=== PATIENT | female | born 1975 ===

== ENCOUNTER → 2017-11-17 | Outpatient (CLI) | payer OTHER ==
--- NOTE | 2017-11-17 17:16 | WOMENS IMAGING REPORT ---
EXAM DESCRIPTION: BILAT SCREENING MAMMO W/CAD COMPLETED DATE/TIME: 11/17/2017 2:59 pm REASON FOR STUDY: SCREENING MAMMO Z12.31 ENCNTR SCREEN MAMMOGRAM FOR MALIGNANT NEOPLASM OF BIANKA COMPARISON: Baseline study TECHNIQUE: Standard craniocaudal and mediolateral oblique views of each breast recorded using [employer] Power[employer] l acquisition. LIMITATIONS: None. FINDINGS: RIGHT BREAST MASSES: No suspicious masses. CALCIFICATIONS: No suspicious calcifications. ARCHITECTURAL DISTORTION: None. DEVELOPING DENSITY: On the right MLO view, superior to the nipple about 7 cm from the nipple, a devel oping density versus superimposed shadows is present for which right breast cone compression in the M LO view, right breast exaggerated craniocaudad view, right whole breast 90 mediolateral views recomm ended for follow-up. If there is persistent finding, then ultrasound would be required for followup. ASYMMETRY: None noted. OTHER: No other significant findings. LEFT BREAST MASSES: No suspicious masses. CALCIFICATIONS: No suspicious calcifications. Benign skin calcifications are present ARCHITECTURAL DISTORTION: None. DEVELOPING DENSITY: None. ASYMMETRY: None noted. OTHER: No other significant findings. Read with the assistance of CAD. .[facility] - R2 Cenova Version 1.3 .[facility] Imaging - R2 Cenova Version 1.3 .[facility] Imaging - R2 Cenova Version 2.4 .[facility] [place] - R2 Cenova Version 2.4 .[facility] - R2 Commission Associate Version 9.2 IMPRESSION: Developing density versus superimposed shadows right breast MLO view only for which blas tional diagnostic mammograms and possible ultrasound recommended. No mammographic evidence for malignancy left breast BREAST DENSITY: b. There are scattered areas of fibroglandular density. BIRAD: 0 Incomplete: Needs Additional Imaging Evaluation and/or prior Mammograms for Comparison. RECOMMENDATION: RECOMMENDED FOLLOW-UP: Additional right breast diagnostic mammograms and possible ul trasound The patient will be contacted for additional imaging. COMMENT: The patient has been notified of the results by letter per MQSA requirements. Additional no tification policies are in place for contacting patient with suspicious or incomplete findings. Quality ID #[id number]: The [employer] recommends an annual screening mammogram for women aged 40 years or over. This facility utilizes a reminder system to ensure that all patients receive reminder letters, and/or direct phone calls for appointments. This includes reminders for routine scr eening mammograms, diagnostic mammograms, or other Breast Imaging Interventions when appropriate. Th is patient will be placed in the appropriate reminder system. The [employer] (ACR) has developed recommendations for screening MRI of the breast s in certain patient populations, to be used in conjunction with mammography. Breast MRI surveillanc e may be appropriate for women with more than 20% lifetime risk of developing breast cancer as deter mined by genetic testing, significant family history of the disease, or history of mantle radiation f or Hodgkins Disease. ACR Practice Guidelines 2008. TECHNICAL DOCUMENTATION: FINDING NUMBER: (1) ASSESSMENT: (1) JOB ID: [id number] [employer]- All Rights Reserved Reading location - IP/workstation name: [email or web address]
== END ==
LOC: WI 11:30
PROVIDERS: ATTEND Family Medicine
DX: Z12.31 Encounter for screening mammogram for malignant neoplasm of breast (principal)
CPT/HCPCS: 77067

== ENCOUNTER → 2017-11-29 | Outpatient (CLI) | payer OTHER ==
--- NOTE | 2017-11-29 15:23 | WOMENS IMAGING REPORT ---
EXAM DESCRIPTION: RIGHT DIAGNOSTIC MAMMO W/CAD; U/S BREAST UNILAT LIMITED COMPLETED DATE/TIME: 11/29/2017 1:06 pm; 11/29/2017 1:43 pm REASON FOR STUDY: INCONCLUSIVE MAMMO; RT BREAST R92.2 R92.2 INCONCLUSIVE MAMMOGRAM COMPARISON: 11/17/2017. TECHNIQUE: True lateral, exaggerated CC lateral, and spot compression MLO and exaggerated CC lateral images. LIMITATIONS: None. FINDINGS: BREAST: right MASSES: No suspicious masses. CALCIFICATIONS: No new or suspicious calcifications. ARCHITECTURAL DISTORTION: None. DEVELOPING DENSITY: Small focal density seen on MLO view only and has the appearance of fibroglandula r tissue. No discrete mass or architectural distortion. ASYMMETRY: None noted. OTHER: No other significant findings. BREAST ULTRASOUND: TECHNIQUE: Static and dynamic grayscale images acquired of the right breast in the specific areas of clinical/mammographic concern. Selected color Doppler images recorded. ELASTOGRAPHY PERFORMED: No. LIMITATIONS: None. FINDINGS: MASS: No mass identified. Normal glandular tissue. ELASTOGRAPHY CHARACTERISTICS: Not applicable. OTHER: No other significant finding. IMPRESSION: No focal abnormality visualized on additional images or ultrasound. [facility], would recommend a short-term interval followup to evaluate for stability. BREAST DENSITY: b. There are scattered areas of fibroglandular density. BIRAD: 3 Probably benign finding. Initial short-interval follow-up suggested. RECOMMENDATION: RECOMMENDED FOLLOW UP: Birads 3: The patient will return in 6 months for follow-up i christina. SPECIFIC INTERVENTION/IMAGING/CONSULTATION RECOMMENDED:The patient will return for 6 month follow-up diagnostic mammography(tomosynthesis) and targeted breast ultrasound. COMMUNICATION:The imaging findings were not discussed with the patient. Her referring provider has be en notified of the findings. COMMENT: The patient has been notified of the results by letter per MQSA requirements. Additional no tification policies are in place for contacting patient with suspicious or incomplete findings. Quality ID #[id number]: The [employer] recommends an annual screening mammogram for women aged 40 years or over. This facility utilizes a reminder system to ensure that all patients receive reminder letters, and/or direct phone calls for appointments. This includes reminders for routine scr eening mammograms, diagnostic mammograms, or other Breast Imaging Interventions when appropriate. Th is patient will be placed in the appropriate reminder system. The [employer] (ACR) has developed recommendations for screening MRI of the breast s in certain patient populations, to be used in conjunction with mammography. Breast MRI surveillanc e may be appropriate for women with more than 20% lifetime risk of developing breast cancer as deter mined by genetic testing, significant family history of the disease, or history of mantle radiation f or Hodgkins Disease. ACR Practice Guidelines 2008. TECHNICAL DOCUMENTATION: FINDING NUMBER: (1) ASSESSMENT: (1) JOB ID: [id number] [employer]- All Rights Reserved Reading location - IP/workstation name: [email or web address] BEDS AT [facility]
== END ==
LOC: WI 12:42
PROVIDERS: ATTEND Family Medicine
DX: R92.2 Inconclusive mammogram (principal)
CPT/HCPCS: 76642

== ENCOUNTER 2019-11-04 11:23 | Inpatient (IN) | payer OTHER ==
--- NOTE | 2019-11-04 11:48 | ER Document Report ---
ED Medical Screen (RME) - General Chief Complaint: Shortness Of Breath Stated Complaint: SHORTNESS OF BREATH Time Seen by Provider: 11/04/19 11:43 Primary Care Provider: NESTOR MALLOY MD [Primary Care Provider] - Follow up as needed Mode of Arrival: Ambulatory Information source: Patient Notes: 43 old female presents to ED for complaint of shortness of breath fatigue takes a lot longer to do everything. She states she has of had a fruity taste in her mouth and at increased acid reflux smokes about 1/2 pack a day rarely drinks no drugs. Patient is alert oriented respirations regular nonlabored. She states she is mainly just severely fatigued of breath. She states she cannot remember the last time she had a bowel movement and she gags all the time. O2 sat in the pit area is 100% pulse is 110 respirations are 20 I have greeted and performed a rapid initial assessment of this patient. A comprehensive ED assessment and evaluation of the patient, analysis of test results and completion of medical decision making process will be conducted by an additional ED providers. TRAVEL OUTSIDE OF THE [place] IN LAST 30 DAYS: No - Related Data Allergies/Adverse Reactions: No Known Allergies Allergy (Verified 11/04/19 11:39) Past Medical History - Past Medical History Cardiac Medical History: Denies: Hx Coronary Artery Disease, Hx Hypertension Pulmonary Medical History: Reports: Hx Pneumonia Denies: Hx Asthma, Hx Bronchitis, Hx COPD Neurological Medical History: Denies: Hx Cerebrovascular Accident, Hx Seizures Musculoskeltal Medical History: Denies Hx Arthritis Past Surgical History: Reports: Hx Tubal Ligation. Denies: Hx Pacemaker - Immunizations Hx Diphtheria, Pertussis, Tetanus Vaccination: Yes Physical Exam - Vital signs Vitals: Pulse Resp BP Pulse Ox 120 H 22 H 114/63 98 11/04/19 11:35 11/04/19 11:35 11/04/19 11:35 11/04/19 11:35 Course - Vital Signs Vital signs: Temp Pulse Resp BP Pulse Ox 120 H 22 H 114/63 98 11/04/19 11:35 11/04/19 11:35 11/04/19 11:35 11/04/19 11:35 Doctor's Discharge - Discharge Referrals: NESTOR MALLOY MD [Primary Care Provider] - Follow up as needed
[2019-11-04 12:37] LABS: VENOUS BLOOD BASE EXCESS -18.1 mmol/L; VENOUS BLOOD HCO3 8.7 mmol/L (20-32); VENOUS BLOOD PCO2 25.1 mmHg (35-63)
[2019-11-04 12:38] LABS: ABSOLUTE LYMPHOCYTES (AUTO) 1.4 10^3/uL (0.5-4.7); ABSOLUTE MONOCYTES (AUTO) 0.6 10^3/uL (0.1-1.4); ABSOLUTE NEUT (AUTO) 8.6 10^3/uL (1.7-8.2); BASOPHILS % (AUTO) 0.3 % (0-2); EOSINOPHILS % (AUTO) 0.3 % (0-6); HEMATOCRIT 49.4 % (36.0-47.0); HEMOGLOBIN 17.2 g/dL (12.0-15.5); LYMPHOCYTES % (AUTO) 12.9 % (13-45); MEAN CORPUSCULAR HEMOGLOBIN 30.2 pg (27.0-33.4); MEAN CORPUSCULAR HGB CONC 34.8 g/dL (32.0-36.0); MEAN CORPUSCULAR VOLUME 87 fl (80-97); MONOCYTES % (AUTO) 5.9 % (3-13); PLATELET COUNT 231 10^3/uL (150-450); RED BLOOD COUNT 5.69 10^6/uL (3.72-5.28); RED CELL DISTRIBUTION WIDTH 16.3 % (11.5-14.0); SEGMENTED NEUTROPHILS % (AUTO) 80.6 % (42-78); TOTAL CELLS COUNTED % (AUTO) 100 %; WHITE BLOOD COUNT 10.7 10^3/uL (4.0-10.5)
[2019-11-04 12:41] LABS: VENOUS BLOOD PH 7.16 (7.30-7.42)
[2019-11-04 12:55] LABS: AMORPHOUS SEDIMENT,URINE TRACE /HPF; APPEARANCE,URINE CLOUDY; BILIRUBIN,URINE NEGATIVE (NEGATIVE); COLOR,URINE YELLOW; GLUCOSE, URINE >=500 mg/dL (NEGATIVE); KETONES,URINE 80 mg/dL (NEGATIVE); PROTEIN,URINE 100 mg/dL (NEGATIVE); URINE SPECIFIC GRAVITY 1.022; UROBILINOGEN,URINE NEGATIVE mg/dL (<2.0)
[2019-11-04 12:57] LABS: ALBUMIN 4.3 g/dL (3.5-5.0); ALKALINE PHOSPHATASE 184 U/L (38-126); ASPARTATE AMINO TRANSFERASE 37 U/L (14-36); BILIRUBIN,DIRECT 0.3 mg/dL (0.0-0.4); BILIRUBIN,TOTAL 0.8 mg/dL (0.2-1.3); BLOOD UREA NITROGEN 7 mg/dL (7-20); CALCIUM 8.9 mg/dL (8.4-10.2); CHLORIDE 100 mmol/L (98-107); POTASSIUM 3.1 mmol/L (3.6-5.0); TOTAL PROTEIN 7.4 g/dL (6.3-8.2)
[2019-11-04 13:10] LABS: ANION GAP 24 (5-19)
[2019-11-04 13:12] LABS: CARBON DIOXIDE 8 mmol/L (22-30); GLUCOSE 425 mg/dL (75-110)
[2019-11-04] MEDS ORDERED: NORMAL SALINE 1000 ML 1,000 ML IV ONE (14:08)
[2019-11-04] MEDS ORDERED: INSULIN REG, HUMAN 100 UNIT/ML 3 ML VIAL (PYX) IV ONE (14:08)
--- NOTE | 2019-11-04 14:17 | ER Document Report ---
ED General - General Chief Complaint: General Weakness Stated Complaint: SHORTNESS OF BREATH Time Seen by Provider: 11/04/19 11:43 Primary Care Provider: NESTOR MALLOY MD [Primary Care Provider] - Follow up as needed Mode of Arrival: Ambulatory Information source: Patient Notes: 43-year-old woman presents to the emergency department with a fatigue and feeling poorly for 1 week. Her symptoms progressed and she is now very weak and notes increased thirst. She denies polyuria or polyphasia. Blood sugar was noted to be elevated when she checked 9 at triage. Patient denies a history of diabetes mellitus in the past. She denies fever, cough, chest pain or urinary symptoms. TRAVEL OUTSIDE OF THE [place] IN LAST 30 DAYS: No - Related Data Allergies/Adverse Reactions: No Known Allergies Allergy (Verified 11/04/19 11:39) Past Medical History - General Information source: Patient - Social History Smoking Status: Current Every Day Smoker Chew tobacco use (# tins/day): No Frequency of alcohol use: Rare Drug Abuse: None Family History: Reviewed & Not Pertinent Patient has suicidal ideation: No Patient has homicidal ideation: No - Past Medical History Cardiac Medical History: Denies: Hx Coronary Artery Disease, Hx Hypertension Pulmonary Medical History: Reports: Hx Pneumonia Denies: Hx Asthma, Hx Bronchitis, Hx COPD Neurological Medical History: Denies: Hx Cerebrovascular Accident, Hx Seizures Musculoskeletal Medical History: Denies Hx Arthritis Past Surgical History: Reports: Hx Tubal Ligation. Denies: Hx Pacemaker - Immunizations Hx Diphtheria, Pertussis, Tetanus Vaccination: Yes Review of Systems - Review of Systems Notes: Constitutional: + Generalized weakness, fatigue HENT: Negative for sore throat. Eyes: Negative for visual changes. Cardiovascular: Negative for chest pain. Respiratory: Negative for shortness of breath. Gastrointestinal: Negative for abdominal pain, vomiting or diarrhea. Genitourinary: Negative for dysuria. Musculoskeletal: Negative for back pain. Skin: Negative for rash. Neurological: Negative for headaches, weakness or numbness. 10 point ROS negative except as marked above and in HPI. Physical Exam - Vital signs Vitals: Pulse Resp BP Pulse Ox 120 H 22 H 114/63 98 11/04/19 11:35 11/04/19 11:35 11/04/19 11:35 11/04/19 11:35 - Notes Notes: PHYSICAL EXAMINATION: Physical Exam: General: Ill appearing 43-year-old female tachycardic and generalized weakness HEENT: NC/AT, eyes sunken, pupils equal round and reactive to light, mucous membranes dry, Neck: supple, no adenopathy, no masses. Lungs: clear, no wheezing, no rales no rhonchi CVS: Tachycardia rate and rhythm no murmur gallop or rub Abdomen: Soft active nontender, no masses, no hepatosplenomegaly Ext: No edema clubbing or cyanosis. Neuro: Alert and responsive, moving all 4 extremities on command, cranial nerves intact. Skin: Intact no open lesions, no rash PSYCH: Normal mood, normal affect. Course - Re-evaluation Re-evalutation: 11/04/19 15:40 Patient presents with DKA and new onset diabetes mellitus, IV fluids ordered as well as IV insulin. Discussed the patient with the hospitalist, he will admit the patient to the MICU for further evaluation and treatment. - Vital Signs Vital signs: Temp Pulse Resp BP Pulse Ox 97.3 F 110 H 20 114/63 99 11/04/19 11:56 11/04/19 11:56 11/04/19 11:56 11/04/19 11:35 11/04/19 12:34 - Laboratory Result Diagrams: 11/04/19 12:17 11/04/19 12:17 Laboratory results interpreted by me: 11/04/19 11/04/19 11/04/19 11:50 12:17 12:17 WBC 10.7 H RBC 5.69 H Hgb 17.2 H Hct 49.4 H RDW 16.3 H Lymph % (Auto) 12.9 L Absolute Neuts (auto) 8.6 H Seg Neutrophils % 80.6 H VBG pH VBG pCO2 VBG HCO3 Sodium 131.8 L Potassium 3.1 L Carbon Dioxide 8 L* Anion Gap 24 H Est GFR (MDRD) Non-Af 56 L Glucose 425 H* POC Glucose 388 H AST 37 H ALT 45 H Alkaline Phosphatase 184 H Urine Protein Urine Glucose (UA) Urine Ketones Urine Blood Leukocyte Esterase Rfl 11/04/19 11/04/19 12:17 12:17 WBC RBC Hgb Hct RDW Lymph % (Auto) Absolute Neuts (auto) Seg Neutrophils % VBG pH 7.16 L* VBG pCO2 25.1 L VBG HCO3 8.7 L Sodium Potassium Carbon Dioxide Anion Gap Est GFR (MDRD) Non-Af Glucose POC Glucose AST ALT Alkaline Phosphatase Urine Protein 100 H Urine Glucose (UA) >=500 H Urine Ketones 80 H Urine Blood MODERATE H Leukocyte Esterase Rfl TRACE H - EKG Interpretation by Nj Rate: Tachycardia - Sinus tachycardia rate 105, left atrial abnormality, borderline T wave diffusely. No acute ST or T wave ischemic changes. Critical Care Note - Critical Care Note Total time excluding time spent on procedures (mins): 60 - Critical care macro Discharge - Discharge Clinical Impression: New onset type 2 diabetes mellitus DKA (diabetic ketoacidoses) Qualifiers: Diabetes mellitus type: other specified (including KULDIP) Diabetes mellitus complication detail: without coma Qualified Code(s): E13.10 - Other specified diabetes mellitus with ketoacidosis without coma UTI (urinary tract infection) Qualifiers: Urinary tract infection type: acute cystitis Hematuria presence: without hematuria Qualified Code(s): N30.00 - Acute cystitis without hematuria Condition: Fair Disposition: ADMITTED INPATIENT Admitting Provider: Betty (Hospitalist) Unit Admitted: IMCU Referrals: NESTOR MALLOY MD [Primary Care Provider] - Follow up as needed
[2019-11-04] MEDS ORDERED: NORMAL SALINE 1000 ML 1,000 ML IV PRN (14:25)
[2019-11-04] MEDS ORDERED: DEXTROSE 40% GEL 15 GM TUBE PO PRN ×2 (14:26)
[2019-11-04] MEDS ORDERED: DEXTROSE 50%-WATER 25 GM/50 ML DISP.SYRIN IV PRN ×2 (14:26)
[2019-11-04] MEDS ORDERED: GLUCAGON,HUMAN RECOMB 1 MG INJ IM PRN (14:26)
[2019-11-04] MEDS ORDERED: PROMETHAZINE HCL INJ 25 MG/1 ML VIAL IV PRN (14:28)
[2019-11-04] MEDS ORDERED: ACETAMINOPHEN 325 MG TABLET PO PRN (14:28)
[2019-11-04] MEDS ORDERED: ONDANSETRON HCL INJ/PF 4 MG/2 ML SDV IV PRN (14:28)
[2019-11-04] MEDS ORDERED: IPRATROPIUM/ALBUTEROL 0.5-2.5 MG/3 ML AMPUL NEB PRN (14:28)
[2019-11-04] MEDS ORDERED: OXYCODONE-ACETAMINOPHEN 5-325 MG TABLET PO PRN (14:28)
--- NOTE | 2019-11-04 14:30 | EKG REPORT ---
SEVERITY:- BORDERLINE ECG - SINUS TACHYCARDIA PROBABLE LEFT ATRIAL ABNORMALITY BORDERLINE T ABNORMALITIES, DIFFUSE LEADS : Confirmed by: Milind Castaneda MD 04-Nov-2019 14:29:26
--- NOTE | 2019-11-04 14:57 | PDOC H&P ---
History of Present Illness Admission Date/PCP: 11/04/19 14:39 NESTOR MALLOY MD History of Present Illness: JULIANNE DANGELO is a 43 year old female no significant past medical history presenting to ED complaining of several days worsening of fatigue, polydipsia, anorexia. Denies any history of diabetes, polyphagia or polyuria, weight changes, had some blurry vision which has improved, denies any dysuria, fever, chills, shortness of breath, chest pain, headache, abdominal pain, diarrhea, constipation. In ED he was found to be very hyperglycemic with elevated anion gap and UA positive for leukocytosis. Hospital was consulted for admission. Past Medical History Cardiac Medical History: Denies: Coronary Artery Disease, Hypertension Pulmonary Medical History: Reports: Pneumonia Denies: Asthma, Bronchitis, Chronic Obstructive Pulmonary Disease (COPD) Neurological Medical History: Denies: Seizures Musculoskeltal Medical History: Denies: Arthritis Hematology: Denies: Anemia Past Surgical History Past Surgical History: Reports: Tubal Ligation Denies: Pacemaker Social History Smoking Status: Current Every Day Smoker Electronic Cigarette use?: No Family History Family History: Reviewed & Not Pertinent Parental Family History Reviewed: Yes Children Family History Reviewed: Yes Sibling(s) Family History Reviewed.: Yes Medication/Allergy Home Medications: Loratadine [Claritin 10 Mg Tablet] 10 mg PO DAILY #30 tablet 06/30/13 No Home Medications 1 06/30/13 Allergies/Adverse Reactions: No Known Allergies Allergy (Verified 11/04/19 11:39) Review of Systems Review of Systems: as per hpi Physical Exam Vital Signs: Temp Pulse Resp BP Pulse Ox 97.3 F 110 H 20 114/63 99 11/04/19 11:56 11/04/19 11:56 11/04/19 11:56 11/04/19 11:35 11/04/19 12:34 Intake & Output 11/03/19 11/04/19 11/05/19 06:59 06:59 06:59 Weight 86.8 kg General appearance: PRESENT: no acute distress, well-developed, well-nourished Head exam: PRESENT: atraumatic, normocephalic Respiratory exam: PRESENT: clear to auscultation bella. ABSENT: rales, rhonchi, wheezes Cardiovascular exam: PRESENT: RRR. ABSENT: diastolic murmur, rubs, systolic murmur Pulses: PRESENT: normal dorsalis pedis pul Extremities exam: PRESENT: full ROM. ABSENT: calf tenderness, clubbing, pedal edema Neurological exam: PRESENT: alert, awake, oriented to person, oriented to place, oriented to time, oriented to situation, CN II-XII grossly intact. ABSENT: motor sensory deficit Skin exam: PRESENT: dry, intact, warm. ABSENT: cyanosis, rash Results Laboratory Results: 11/04/19 12:17 11/04/19 12:17 11/04/19 11/04/19 11/04/19 12:17 12:17 12:17 WBC 10.7 H RBC 5.69 H Hgb 17.2 H Hct 49.4 H MCV 87 MCH 30.2 MCHC 34.8 RDW 16.3 H Plt Count 231 Seg Neutrophils % 80.6 H VBG pH 7.16 L* VBG pCO2 25.1 L VBG HCO3 8.7 L VBG Base Excess -18.1 Sodium 131.8 L Potassium 3.1 L Chloride 100 Carbon Dioxide 8 L* Anion Gap 24 H BUN 7 Creatinine 1.07 Est GFR ( Amer) > 60 Glucose 425 H* Calcium 8.9 Total Bilirubin 0.8 AST 37 H Alkaline Phosphatase 184 H Total Protein 7.4 Albumin 4.3 Serum HCG, Qual Urine Color Urine Appearance Urine pH Ur Specific [place] Urine Protein Urine Glucose (UA) Urine Ketones Urine Blood Urine RBC (Auto) 11/04/19 11/04/19 12:17 12:17 WBC RBC Hgb Hct MCV MCH MCHC RDW Plt Count Seg Neutrophils % VBG pH VBG pCO2 VBG HCO3 VBG Base Excess Sodium Potassium Chloride Carbon Dioxide Anion Gap BUN Creatinine Est GFR ( Amer) Glucose Calcium Total Bilirubin AST Alkaline Phosphatase Total Protein Albumin Serum HCG, Qual NEGATIVE Urine Color YELLOW Urine Appearance CLOUDY Urine pH 6.0 Ur Specific [place] 1.022 Urine Protein 100 H Urine Glucose (UA) >=500 H Urine Ketones 80 H Urine Blood MODERATE H Urine RBC (Auto) 11 Assessment and Plan - Diagnosis (1) DKA (diabetic ketoacidoses) Qualifiers: Diabetes mellitus type: other specified (including KULDIP) Diabetes mellitus complication detail: without coma Qualified Code(s): E13.10 - Other specified diabetes mellitus with ketoacidosis without coma Is this a current diagnosis for this admission?: Yes Plan: Likely induced by underlying UTI. UA positive for ketones. AG 24. We will start on DKA protocol. (2) New onset type 2 diabetes mellitus Is this a current diagnosis for this admission?: Yes Plan: Endorses family history of diabetes. Pending A1c. Diabetic education. Diabetic diet. Will transition to basal, prandial and correctional insulin once DKA has resolved. (3) UTI (urinary tract infection) Qualifiers: Urinary tract infection type: acute cystitis Is this a current diagnosis for this admission?: Yes Plan: Likely due to gram-negative rods including E. coli. We will start on broad-spectrum antibiotics. Urine culture.
[2019-11-04] MEDS ORDERED: CEFTRIAXONE 1 GM/D5W RTU 1 GM/50 ML RTUPB IV SCH (15:00)
[2019-11-04] MEDS ORDERED: INSULIN REG, HUMAN 100 UNIT/ML 3 ML VIAL (PYX) ONE (15:13)
[2019-11-04] MEDS: NORMAL SALINE 100 ML with INSULIN REGULAR, HUMAN 100 UNIT IV PRN ×2 (15:38)
[2019-11-04 16:37] LABS: ARTERIAL BLOOD BASE EXCESS -19.9 mmol/L; ARTERIAL BLOOD FIO2 ROOM AIR; ARTERIAL BLOOD H2CO3 0.35 mmol/L (1.05-1.35); ARTERIAL BLOOD HCO3 4.6 mmol/L (20-24); ARTERIAL BLOOD O2 SATURATION 98.3 % (94-98); ARTERIAL BLOOD PH 7.22 (7.35-7.45); ARTERIAL BLOOD PO2 135.3 mmHg (80-100)
[2019-11-04 16:39] LABS: ARTERIAL BLOOD PCO2 11.5 mmHg (35-45)
[2019-11-04 18:47] LABS: BLOOD UREA NITROGEN 6 mg/dL (7-20); CALCIUM 7.9 mg/dL (8.4-10.2); GLUCOSE 284 mg/dL (75-110)
[2019-11-04 18:53] LABS: CHLORIDE 106 mmol/L (98-107)
[2019-11-04 18:54] LABS: ANION GAP 22 (5-19)
[2019-11-04 18:56] LABS: CARBON DIOXIDE 7 mmol/L (22-30); POTASSIUM 2.5 mmol/L (3.6-5.0)
[2019-11-04] MEDS ORDERED: SODIUM BICARBONATE 8.4% INJ 50 MEQ/50 ML DISP.SYRIN IV ONE (18:59)
[2019-11-04] MEDS ORDERED: POTASSI CL 20 MEQ/NS 1L 1,000 ML IV PRN (19:00)
[2019-11-04] MEDS ORDERED: POTASSIUM CHLORIDE 10 MEQ TABLET.ER PO ONE ×2 (19:02→22:00)
[2019-11-04] MEDS ORDERED: INFLUENZA QUAD (6MOS+) 2019-20 VAC 0.5 ML SYR IM ONE (20:27)
[2019-11-04] MEDS: FAMOTIDINE 20 MG TABLET PO SCH (21:54)
[2019-11-04 22:03] LABS: ALBUMIN 3.3 g/dL (3.5-5.0); ALKALINE PHOSPHATASE 143 U/L (38-126); ANION GAP 19 (5-19); ASPARTATE AMINO TRANSFERASE 25 U/L (14-36); BILIRUBIN,DIRECT 0.4 mg/dL (0.0-0.4); BILIRUBIN,TOTAL 0.6 mg/dL (0.2-1.3); BLOOD UREA NITROGEN 7 mg/dL (7-20); CALCIUM 8.1 mg/dL (8.4-10.2); CHLORIDE 107 mmol/L (98-107); GLUCOSE 256 mg/dL (75-110); TOTAL PROTEIN 6.2 g/dL (6.3-8.2)
[2019-11-04 22:11] LABS: POTASSIUM 2.5 mmol/L (3.6-5.0)
[2019-11-04 22:12] LABS: CARBON DIOXIDE 9 mmol/L (22-30)
[2019-11-04] MEDS: POTASSIUM CHLORIDE 20 MEQ/50 ML RTU IV SCH (22:33)
[2019-11-04] MEDS: POTASSI CL 20 MEQ/D5-1/2NS 1L 1000 ML IV PRN (22:34)
[2019-11-05] MEDS: POTASSIUM CHLORIDE 20 MEQ/50 ML RTU IV SCH ×3 (00:38→05:31)
[2019-11-05 02:57] LABS: ANION GAP 14 (5-19); BLOOD UREA NITROGEN 6 mg/dL (7-20); CALCIUM 8.3 mg/dL (8.4-10.2); CHLORIDE 114 mmol/L (98-107); GLUCOSE 189 mg/dL (75-110); POTASSIUM 3.1 mmol/L (3.6-5.0)
[2019-11-05] MEDS ORDERED: POTASSIUM CHLORIDE 10 MEQ TABLET.ER PO ONE ×3 (03:19→16:00)
[2019-11-05] MEDS: POTASSI CL 20 MEQ/D5-1/2NS 1L 1000 ML IV PRN ×3 (03:33→07:15)
[2019-11-05 03:41] LABS: CARBON DIOXIDE 8 mmol/L (22-30)
[2019-11-05 06:06] LABS: HEMATOCRIT 40.7 % (36.0-47.0); MEAN CORPUSCULAR HEMOGLOBIN 30.3 pg (27.0-33.4); MEAN CORPUSCULAR HGB CONC 35.7 g/dL (32.0-36.0); MEAN CORPUSCULAR VOLUME 85 fl (80-97); PLATELET COUNT 171 10^3/uL (150-450); RED BLOOD COUNT 4.79 10^6/uL (3.72-5.28); RED CELL DISTRIBUTION WIDTH 15.8 % (11.5-14.0); WHITE BLOOD COUNT 8.6 10^3/uL (4.0-10.5)
[2019-11-05 06:07] LABS: HEMOGLOBIN 14.5 g/dL (12.0-15.5)
[2019-11-05 06:20] LABS: ALBUMIN 2.8 g/dL (3.5-5.0); ALKALINE PHOSPHATASE 131 U/L (38-126); ASPARTATE AMINO TRANSFERASE 18 U/L (14-36); BILIRUBIN,TOTAL 0.5 mg/dL (0.2-1.3); BLOOD UREA NITROGEN 5 mg/dL (7-20); CHLORIDE 115 mmol/L (98-107); GLUCOSE 241 mg/dL (75-110); TOTAL PROTEIN 5.3 g/dL (6.3-8.2)
[2019-11-05 06:37] LABS: ANION GAP 8 (5-19)
[2019-11-05 06:44] LABS: CARBON DIOXIDE 11 mmol/L (22-30); POTASSIUM 4.3 mmol/L (3.6-5.0)
[2019-11-05] MEDS: NORMAL SALINE 100 ML with INSULIN REGULAR, HUMAN 100 UNIT IV PRN ×2 (08:14)
[2019-11-05] MEDS ORDERED: GLUCAGON,HUMAN RECOMB 1 MG INJ IM PRN ×2 (08:24→08:26)
[2019-11-05] MEDS ORDERED: DEXTROSE 50%-WATER 25 GM/50 ML DISP.SYRIN IV PRN ×4 (08:24→08:26)
[2019-11-05] MEDS ORDERED: DEXTROSE 40% GEL 15 GM TUBE PO PRN ×4 (08:24→08:26)
[2019-11-05] MEDS: DOCUSATE SODIUM 100 MG/10 ML UDC PO SCH (09:51)
[2019-11-05] MEDS ORDERED: CEFTRIAXONE 1 GM/D5W RTU 1 GM/50 ML RTUPB IV SCH (10:00)
[2019-11-05] MEDS ORDERED: INSULIN GLARGINE,HUM.REC.ANLOG 1,000 UNIT/10 ML VIAL SUBCUT SCH (10:00)
[2019-11-05] MEDS: INSULIN GLARGINE,HUM.REC.ANLOG 1,000 UNIT/10 ML VIAL SUBCUT SCH (10:50)
[2019-11-05] MEDS: ENOXAPARIN SODIUM INJ 40 MG/0.4 ML DISP.SYRIN SUBCUT SCH (10:50)
[2019-11-05] MEDS: FAMOTIDINE 20 MG TABLET PO SCH ×2 (10:50→21:34)
[2019-11-05] MEDS: CEFTRIAXONE 1 GM/D5W RTU 1 GM/50 ML RTUPB IV SCH (10:51)
[2019-11-05] MEDS ORDERED: INSULIN LISPRO 100 UNIT/ML 3 ML VIAL SUBCUT SCH (12:00)
[2019-11-05] MEDS: INSULIN LISPRO 100 UNIT/ML 3 ML VIAL SUBCUT SCH ×5 (12:25→21:34)
[2019-11-05 14:20] LABS: ALBUMIN 2.9 g/dL (3.5-5.0); ALKALINE PHOSPHATASE 138 U/L (38-126); ANION GAP 7 (5-19); ASPARTATE AMINO TRANSFERASE 24 U/L (14-36); BILIRUBIN,TOTAL 0.5 mg/dL (0.2-1.3); BLOOD UREA NITROGEN 3 mg/dL (7-20); CALCIUM 8.2 mg/dL (8.4-10.2); CARBON DIOXIDE 13 mmol/L (22-30); CHLORIDE 115 mmol/L (98-107); GLUCOSE 178 mg/dL (75-110); TOTAL PROTEIN 5.4 g/dL (6.3-8.2)
[2019-11-05 14:33] LABS: POTASSIUM 3.3 mmol/L (3.6-5.0)
--- NOTE | 2019-11-05 15:27 | PDOC PROGRESS REPORT ---
Subjective Progress Note for:: 11/05/19 Subjective:: JULIANNE DANGELO is a 43 year old female no significant past medical history presenting to ED complaining of several days worsening of fatigue, polydipsia, anorexia. Denies any history of diabetes, polyphagia or polyuria, weight changes, had some blurry vision which has improved, denies any dysuria, fever, chills, shortness of breath, chest pain, headache, abdominal pain, diarrhea, constipation. In ED he was found to be very hyperglycemic with elevated anion gap and UA positive for leukocytosis. Hospital was consulted for admission. 11/05/2019. No acute events overnight. Denies any fever, chills, nausea, vomiting, diarrhea, constipation or any urinary symptoms. Endorsing low appetite. Reason For Visit: DKA Physical Exam Vital Signs: Temp Pulse Resp BP Pulse Ox 97.8 F 97 14 97/58 L 98 11/05/19 08:08 11/05/19 14:30 11/05/19 14:30 11/05/19 08:08 11/05/19 14:30 Intake & Output 11/04/19 11/05/19 11/06/19 06:59 06:59 06:59 Intake Total 4010 1851 Balance 4010 1851 Weight 69.7 kg General appearance: PRESENT: no acute distress, well-developed, well-nourished Head exam: PRESENT: atraumatic, normocephalic Respiratory exam: PRESENT: clear to auscultation bella. ABSENT: rales, rhonchi, wheezes Cardiovascular exam: PRESENT: RRR. ABSENT: diastolic murmur, rubs, systolic murmur GI/Abdominal exam: PRESENT: normal bowel sounds, soft. ABSENT: distended, guarding, mass, organolmegaly, rebound, tenderness Extremities exam: PRESENT: full ROM. ABSENT: calf tenderness, clubbing, pedal edema Neurological exam: PRESENT: alert, awake, oriented to person, oriented to place, oriented to time, oriented to situation, CN II-XII grossly intact. ABSENT: motor sensory deficit Results Laboratory Results: 11/05/19 05:08 11/05/19 13:30 11/04/19 11/04/19 11/04/19 15:25 18:01 21:25 WBC RBC Hgb Hct MCV MCH MCHC RDW Plt Count Carbonic Acid 0.35 L HCO3/H2CO3 Ratio 13:1 ABG pH 7.22 L ABG pCO2 11.5 L* ABG pO2 135.3 H ABG HCO3 4.6 L ABG O2 Saturation 98.3 H ABG Base Excess -19.9 FiO2 ROOM AIR Sodium 134.9 L 135.1 L Potassium 2.5 L* 2.5 L* Chloride 106 107 Carbon Dioxide 7 L* 9 L* Anion Gap 22 H 19 BUN 6 L 7 Creatinine 0.89 0.83 Est GFR ( Amer) > 60 > 60 Glucose 284 H 256 H Calcium 7.9 L 8.1 L Magnesium Total Bilirubin 0.6 AST 25 Alkaline Phosphatase 143 H Total Protein 6.2 L Albumin 3.3 L 11/05/19 11/05/19 11/05/19 02:22 05:08 05:08 WBC 8.6 RBC 4.79 Hgb 14.5 D Hct 40.7 MCV 85 MCH 30.3 MCHC 35.7 RDW 15.8 H Plt Count 171 Carbonic Acid HCO3/H2CO3 Ratio ABG pH ABG pCO2 ABG pO2 ABG HCO3 ABG O2 Saturation ABG Base Excess FiO2 Sodium 136.1 L 133.5 L Potassium 3.1 L 4.3 D Chloride 114 H 115 H Carbon Dioxide 8 L* 11 L Anion Gap 14 8 BUN 6 L 5 L Creatinine 0.66 0.63 Est GFR ( Amer) > 60 > 60 Glucose 189 H 241 H Calcium 8.3 L 8.0 L Magnesium 2.3 Total Bilirubin 0.5 AST 18 Alkaline Phosphatase 131 H Total Protein 5.3 L Albumin 2.8 L 11/05/19 13:30 WBC RBC Hgb Hct MCV MCH MCHC RDW Plt Count Carbonic Acid HCO3/H2CO3 Ratio ABG pH ABG pCO2 ABG pO2 ABG HCO3 ABG O2 Saturation ABG Base Excess FiO2 Sodium 134.9 L Potassium 3.3 L D Chloride 115 H Carbon Dioxide 13 L Anion Gap 7 BUN 3 L Creatinine 0.68 Est GFR ( Amer) > 60 Glucose 178 H Calcium 8.2 L Magnesium Total Bilirubin 0.5 AST 24 Alkaline Phosphatase 138 H Total Protein 5.4 L Albumin 2.9 L Assessment and Plan - Diagnosis (1) New onset type 2 diabetes mellitus Is this a current diagnosis for this admission?: Yes Plan: Endorses family history of diabetes. Hemoglobin A1c 12.3. Diabetic education. Basal, prandial and correctional insulin. Diabetic diet and Accu-Chek and hypoglycemia protocol. (2) UTI (urinary tract infection) Qualifiers: Urinary tract infection type: acute cystitis Hematuria presence: without hematuria Qualified Code(s): N30.00 - Acute cystitis without hematuria Is this a current diagnosis for this admission?: Yes Plan: Likely due to gram-negative rods including E. coli. We will start on broad-spectrum antibiotics. Urine culture. (3) DKA (diabetic ketoacidoses) Qualifiers: Diabetes mellitus type: other specified (including KULIDP) Diabetes mellitus complication detail: without coma Qualified Code(s): E13.10 - Other specified diabetes mellitus with ketoacidosis without coma Is this a current diagnosis for this admission?: Yes Plan: Resolved. Anion gap closed. Switch to subcutaneous insulin. Likely induced by underlying UTI. UA positive for ketones. AG 24 on admission.
[2019-11-06 05:37] LABS: ANION GAP 11 (5-19); BLOOD UREA NITROGEN 4 mg/dL (7-20); CALCIUM 8.3 mg/dL (8.4-10.2); CARBON DIOXIDE 12 mmol/L (22-30); CHLORIDE 115 mmol/L (98-107); GLUCOSE 142 mg/dL (75-110)
[2019-11-06] MEDS: POTASSIUM CHLORIDE 20 MEQ/50 ML RTU IV SCH ×2 (07:19→09:01)
[2019-11-06] MEDS ORDERED: POTASSIUM CHLORIDE 10 MEQ TABLET.ER PO ONE (08:00)
[2019-11-06] MEDS: CEFTRIAXONE 1 GM/D5W RTU 1 GM/50 ML RTUPB IV SCH (09:02)
[2019-11-06] MEDS: INSULIN LISPRO 100 UNIT/ML 3 ML VIAL SUBCUT SCH ×4 (09:02→14:28)
[2019-11-06] MEDS: ENOXAPARIN SODIUM INJ 40 MG/0.4 ML DISP.SYRIN SUBCUT SCH (09:02)
[2019-11-06] MEDS: FAMOTIDINE 20 MG TABLET PO SCH (09:03)
[2019-11-06] MEDS: DOCUSATE SODIUM 100 MG/10 ML UDC PO SCH (09:03)
[2019-11-06] MEDS: INSULIN GLARGINE,HUM.REC.ANLOG 1,000 UNIT/10 ML VIAL SUBCUT SCH (09:06)
[2019-11-06 13:44] VITALS: BP 126/76
[2019-11-06] MEDS ORDERED: INFLUENZA QUAD (6MOS+) 2019-20 VAC 0.5 ML SYR IM ONE (14:15)
--- NOTE | 2019-11-06 17:36 | PDOC DISCHARGE SUMMARY ---
Impression - Admit/DC Date/PCP Admission Date/Primary Care Provider: 11/04/19 14:39 NESTOR MALLOY MD Discharge Date: 11/06/19 - Discharge Diagnosis (1) New onset type 2 diabetes mellitus Is this a current diagnosis for this admission?: Yes (2) UTI (urinary tract infection) Is this a current diagnosis for this admission?: Yes (3) DKA (diabetic ketoacidoses) Is this a current diagnosis for this admission?: Yes - Additional Information Resuscitation Status: Full Code Discharge Diet: As Tolerated Discharge Activity: Activity As Tolerated, Balance Activity w/Rest Referrals: [facility] [Provider Group] - 11/14/19 3:00 pm Prescriptions: Insulin Lispro [Humalog Insulin 100 Unit/1 ml 3 ml Vial] 0 - 12 unit SUBCUT .SLD SCALE 30 Days #10 ml Insulin Glargine,Hum.rec.anlog [Lantus Insulin 100 Unit/1 ml 10 ml] 15 unit SUBCUT QHS 30 Days #1 unit Home Medications: Insulin Glargine,Hum.rec.anlog [Lantus Insulin 100 Unit/1 ml 10 ml] 15 unit SUBCUT QHS 30 Days #1 unit 11/06/19 Insulin Lispro [Humalog Insulin 100 Unit/1 ml 3 ml Vial] 0 - 12 unit SUBCUT .SLD SCALE 30 Days #10 ml 11/06/19 History of Present Illiness History of Present Illness: JULIANNE DANGELO is a 43 year old female no significant past medical history presenting to ED complaining of several days worsening of fatigue, polydipsia, anorexia. Denies any history of diabetes, polyphagia or polyuria, weight changes, had some blurry vision which has improved, denies any dysuria, fever, chills, shortness of breath, chest pain, headache, abdominal pain, diarrhea, constipation. In ED he was found to be very hyperglycemic with elevated anion gap and UA positive for leukocytosis. Hospital was consulted for admission. Hospital Course Hospital Course: (1) New onset type 2 diabetes mellitus Endorses family history of diabetes. Hemoglobin A1c 12.3. Diabetic education. Basal, prandial and correctional insulin. Diabetic diet and Accu-Chek and hypoglycemia protocol. Was discharged on long-acting insulin and sliding scale insulin. Diabetic education provided. Was advised to follow-up with PCP for adjustment of her insulin dosage. Also encouraged to follow-up with lockstitch hemmer determine if patient had type I or type 2 diabetes. (2) UTI (urinary tract infection) Likely due to gram-negative rods including E. coli. Blood culture negative. Received 3 days of broad-spectrum IV antibiotics. Unfortunately no urine culture was obtained admission. (3) DKA (diabetic ketoacidoses) Resolved. Anion gap closed. Switched to subcutaneous insulin. Likely induced by underlying UTI. UA positive for ketones. AG 24 on admission. Physical Exam Vital Signs: Temp Pulse Resp BP Pulse Ox 97.9 F 90 16 126/76 H 100 11/06/19 13:41 11/06/19 13:41 11/06/19 13:41 11/06/19 13:41 11/06/19 13:41 Intake & Output 11/05/19 11/06/19 11/07/19 06:59 06:59 06:59 Intake Total 4010 2971 283 Balance 4010 2971 283 Weight 69.7 kg 73.8 kg General appearance: PRESENT: no acute distress, well-developed, well-nourished Head exam: PRESENT: atraumatic, normocephalic Respiratory exam: PRESENT: clear to auscultation bella. ABSENT: rales, rhonchi, wheezes GI/Abdominal exam: PRESENT: normal bowel sounds, soft. ABSENT: distended, g uarding, mass, organolmegaly, rebound, tenderness Neurological exam: PRESENT: alert, awake, oriented to person, oriented to place, oriented to time, oriented to situation, CN II-XII grossly intact. ABSENT: motor sensory deficit Skin exam: PRESENT: dry, intact, warm. ABSENT: cyanosis, rash Results Laboratory Results: WBC 8.6 10^3/uL (4.0-10.5) 11/05/19 05:08 RBC 4.79 10^6/uL (3.72-5.28) 11/05/19 05:08 Hgb 14.5 g/dL (12.0-15.5) D 11/05/19 05:08 Hct 40.7 % (36.0-47.0) 11/05/19 05:08 MCV 85 fl (80-97) 11/05/19 05:08 MCH 30.3 pg (27.0-33.4) 11/05/19 05:08 MCHC 35.7 g/dL (32.0-36.0) 11/05/19 05:08 RDW 15.8 % (11.5-14.0) H 11/05/19 05:08 Plt Count 171 10^3/uL (150-450) 11/05/19 05:08 Lymph % (Auto) 12.9 % (13-45) L 11/04/19 12:17 [place] % (Auto) 5.9 % (3-13) 11/04/19 12:17 Eos % (Auto) 0.3 % (0-6) 11/04/19 12:17 Baso % (Auto) 0.3 % (0-2) 11/04/19 12:17 Absolute Neuts (auto) 8.6 10^3/uL (1.7-8.2) H 11/04/19 12:17 Absolute Lymphs (auto) 1.4 10^3/uL (0.5-4.7) 11/04/19 12:17 Absolute Monos (auto) 0.6 10^3/uL (0.1-1.4) 11/04/19 12:17 Absolute Eos (auto) 0.0 10^3/uL (0.0-0.6) 11/04/19 12:17 Absolute Basos (auto) 0.0 10^3/uL (0.0-0.2) 11/04/19 12:17 Seg Neutrophils % 80.6 % (42-78) H 11/04/19 12:17 Carbonic Acid 0.35 mmol/L (1.05-1.35) L 11/04/19 15:25 HCO3/H2CO3 Ratio 13:1 11/04/19 15:25 ABG pH 7.22 (7.35-7.45) L 11/04/19 15:25 ABG pCO2 11.5 mmHg (35-45) L* 11/04/19 15:25 ABG pO2 135.3 mmHg (80-100) H 11/04/19 15:25 ABG HCO3 4.6 mmol/L (20-24) L 11/04/19 15:25 ABG Total CO2 5.0 mmol/L (21-25) L 11/04/19 15:25 ABG O2 Saturation 98.3 % (94-98) H 11/04/19 15:25 ABG Base Excess -19.9 mmol/L 11/04/19 15:25 VBG pH 7.16 (7.30-7.42) L* 11/04/19 12:17 VBG pCO2 25.1 mmHg (35-63) L 11/04/19 12:17 VBG HCO3 8.7 mmol/L (20-32) L 11/04/19 12:17 VBG Base Excess -18.1 mmol/L 11/04/19 12:17 FiO2 ROOM AIR 11/04/19 15:25 Sodium 137.5 mmol/L (137-145) 11/06/19 04:01 Potassium 3.8 mmol/L (3.6-5.0) 11/06/19 09:53 Chloride 115 mmol/L (98-107) H 11/06/19 04:01 Carbon Dioxide 12 mmol/L (22-30) L 11/06/19 04:01 Anion Gap 11 (5-19) 11/06/19 04:01 BUN 4 mg/dL (7-20) L 11/06/19 04:01 Creatinine 0.66 mg/dL (0.52-1.25) 11/06/19 04:01 Est GFR ( Amer) > 60 (>60) 11/06/19 04:01 Est GFR (MDRD) Non-Af > 60 (>60) 11/06/19 04:01 Glucose 142 mg/dL (75-110) H 11/06/19 04:01 POC Glucose 222 mg/dL (70-110) H 11/06/19 11:36 Hemoglobin A1c % 12.3 % (4.7-6.0) H 11/04/19 12:17 Calcium 8.3 mg/dL (8.4-10.2) L 11/06/19 04:01 Magnesium 2.3 mg/dL (1.6-2.3) 11/06/19 04:01 Total Bilirubin 0.5 mg/dL (0.2-1.3) 11/05/19 13:30 Direct Bilirubin 0.0 mg/dL (0.0-0.4) 11/05/19 13:30 Neonat Total Bilirubin Not Reportable 11/05/19 13:30 Neonat Direct Bilirubin Not Reportable 11/05/19 13:30 Neonat Indirect Bili Not Reportable 11/05/19 13:30 AST 24 U/L (14-36) 11/05/19 13:30 ALT 27 U/L (<35) 11/05/19 13:30 Alkaline Phosphatase 138 U/L (38-126) H 11/05/19 13:30 Total Protein 5.4 g/dL (6.3-8.2) L 11/05/19 13:30 Albumin 2.9 g/dL (3.5-5.0) L 11/05/19 13:30 TSH 2.67 uIU/mL (0.47-4.68) 11/04/19 12:17 Serum HCG, Qual NEGATIVE (NEGATIVE) 11/04/19 12:17 Urine Color YELLOW 11/04/19 12:17 Urine Appearance CLOUDY 11/04/19 12:17 Urine pH 6.0 (5.0-9.0) 11/04/19 12:17 Ur Specific [place] 1.022 11/04/19 12:17 Urine Protein 100 mg/dL (NEGATIVE) H 11/04/19 12:17 Urine Glucose (UA) >=500 mg/dL (NEGATIVE) H 11/04/19 12:17 Urine Ketones 80 mg/dL (NEGATIVE) H 11/04/19 12:17 Urine Blood MODERATE (NEGATIVE) H 11/04/19 12:17 Urine Nitrite (Reflex) NEGATIVE (NEGATIVE) 11/04/19 12:17 Urine Bilirubin NEGATIVE (NEGATIVE) 11/04/19 12:17 Urine Urobilinogen NEGATIVE mg/dL (<2.0) 11/04/19 12:17 Leukocyte Esterase Rfl TRACE (NEGATIVE) H 11/04/19 12:17 Urine RBC (Auto) 11 /HPF 11/04/19 12:17 U Hyaline Cast (Auto) 24 /LPF 11/04/19 12:17 Urine Bacteria (Auto) TRACE /HPF 11/04/19 12:17 Urine WBC (Reflex) 129 /HPF 11/04/19 12:17 Squamous Epi Cells Auto 7 /HPF 11/04/19 12:17 Amorphous Sediment Auto TRACE /HPF 11/04/19 12:17 Urine Mucus (Auto) RARE /LPF 11/04/19 12:17 Urine Ascorbic Acid NEGATIVE (NEGATIVE) 11/04/19 12:17 Stroke Is this a Stroke Patient?: No Acute Heart Failure - Is this a Heart Failure Patient?: No
== END 2019-11-06 16:30 | disposition home or self-care (01) | DRG 638 ==
LOC: ER 11:23 → EH 14:39 → 3S 19:50
PROVIDERS: ADMIT Internal Medicine; ATTEND Internal Medicine
DX: E11.10 Type 2 diabetes mellitus with ketoacidosis without coma (principal); N30.00 Acute cystitis without hematuria; B96.20 Unspecified Escherichia coli [E. coli] as the cause of diseases classified elsewhere; F17.210 Nicotine dependence, cigarettes, uncomplicated; Z23 Encounter for immunization; Z79.4 Long term (current) use of insulin; Z79.899 Other long term (current) drug therapy
CPT/HCPCS: 36415; 80048; 80053; 81001; 82803; 82962; 83036; 83735; 84132; 84443; 84703; 85025; 85027; 87040; 87070; 90686; 93005; 93010; 99291; J0696; J1650; J1815; J3480; J7030; J7050

== ENCOUNTER → 2020-08-01 | Outpatient (CLI) | payer OTHER ==
[2020-08-01 10:38] LABS: ABSOLUTE EOSINOPHILS # (AUTO) 0.1 10^3/uL (0.0-0.6); ABSOLUTE LYMPHOCYTES (AUTO) 1.4 10^3/uL (0.5-4.7); ABSOLUTE MONOCYTES (AUTO) 0.4 10^3/uL (0.1-1.4); ABSOLUTE NEUT (AUTO) 6.7 10^3/uL (1.7-8.2); BASOPHILS % (AUTO) 0.5 % (0-2); EOSINOPHILS % (AUTO) 0.8 % (0-6); HEMATOCRIT 40.8 % (36.0-47.0); HEMOGLOBIN 13.6 g/dL (12.0-15.5); LYMPHOCYTES % (AUTO) 16.8 % (13-45); MEAN CORPUSCULAR HEMOGLOBIN 30.5 pg (27.0-33.4); MEAN CORPUSCULAR HGB CONC 33.2 g/dL (32.0-36.0); MEAN CORPUSCULAR VOLUME 92 fl (80-97); MONOCYTES % (AUTO) 4.3 % (3-13); PLATELET COUNT 315 10^3/uL (150-450); RED BLOOD COUNT 4.45 10^6/uL (3.72-5.28); RED CELL DISTRIBUTION WIDTH 14.8 % (11.5-14.0); SEGMENTED NEUTROPHILS % (AUTO) 77.6 % (42-78); TOTAL CELLS COUNTED % (AUTO) 100 %; WHITE BLOOD COUNT 8.6 10^3/uL (4.0-10.5)
[2020-08-01 11:02] LABS: ALBUMIN 4.2 g/dL (3.5-5.0); ALKALINE PHOSPHATASE 81 U/L (38-126); ANION GAP 10 (5-19); ASPARTATE AMINO TRANSFERASE 28 U/L (14-36); BILIRUBIN,TOTAL 0.9 mg/dL (0.2-1.3); BLOOD UREA NITROGEN 11 mg/dL (7-20); CALCIUM 9.1 mg/dL (8.4-10.2); CARBON DIOXIDE 24 mmol/L (22-30); CHLORIDE 106 mmol/L (98-107); CHOLESTEROL 177.97 mg/dL (0-200); GLUCOSE 107 mg/dL (75-110); POTASSIUM 4.4 mmol/L (3.6-5.0); TRIGLYCERIDES 122 mg/dL (<150)
[2020-08-01 11:13] LABS: DIRECT LDL 88 mg/dL (<100)
--- OUTSIDE RECORDS SUMMARY | 2020-08-02 15:12 | XMS REPORT ---
:1975 [facility] [address] [place] [address] Care Team Providers Name Role Phone Aba Das Attending Clinician Unavailable Aba Das Attending Clinician Unavailable Allergies, Adverse Reactions, Alerts This patient has no known allergies or adverse reactions. Medications This patient has no known medications. Problems This patient has no known problems. Procedures Procedure Date / Time Performed Performing Clinician Gianfranco taveras OFFICE/OUTPATIENT VISIT EST 2020-02-21 09:15:00 PREV VISIT EST AGE 40-64 2017-11-12 13:30:00 OFFICE/OUTPATIENT VISIT EST 2017-11-08 14:00:00 Results Test Description Test Time Test Comments Text Results Atomic Results Result Comments INSULIN 2020-04-30 11:34:00 14.4 HEMOGLOBIN A1c WITH eAG 2020-04-30 11:34:00 Test Item Value Reference Range Comments eAG (mg/dL) (test code = 58597313) 108 (calc) HEMOGLOBIN A1c (test code = 4548-4) 5.4 % of total Hgb <5.7 eAG (mmol/L) (test code = 48805194) 6.0 (calc) LIPID PANEL, [id number] 11:34:00 Test Item Value Reference Range Comments LDL-CHOLESTEROL (test code = 49832810) 172 mg/dL (calc) TRIGLYCERIDES (test code = 11952807) 131 mg/dL <150 CHOLESTEROL, TOTAL (test code = 96305795) 261 mg/dL <200 HDL CHOLESTEROL (test code = 14402977) 62 mg/dL > OR = 50 CHOL/HDLC RATIO (test code = 09131573) 4.2 (calc) <5.0 NON HDL CHOLESTEROL (test code = 78941867) 199 mg/dL (calc) <130 COMPREHENSIVE METABOLIC [id number] 10:25:00 Test Item Value Reference Range Comments CARBON DIOXIDE (test code = 97632140) 23 mmol/L 20-32 AST (test code = 10682427) 12 U/L 10-35 eGFR NON-AFR. [place] LEONEAN (test code = 96 mL/min/1.73m2 > OR = 60 45734959) CHLORIDE (test code = 71192060) 108 mmol/L 98-110 ALBUMIN (test code = 21444622) 4.3 g/dL 3.6-5.1 CALCIUM (test code = 53658001) 9.2 mg/dL 8.6-10.2 POTASSIUM (test code = 05821563) 4.5 mmol/L 3.5-5.3 eGFR (test code = 112 mL/min/1.73m2 > OR = 60 85108135) BUN/CREATININE RATIO (test code = NOT APPLICABLE (calc) 6-22 49374461) SODIUM (test code = 30482447) 139 mmol/L 135-146 ALT (test code = 42945200) 13 U/L 6-29 BILIRUBIN, TOTAL (test code = 0.6 mg/dL 0.2-1.2 21563716) ALBUMIN/GLOBULIN RATIO (test code = 1.7 (calc) 1.0-2.5 15759602) GLOBULIN (test code = 35007660) 2.6 g/dL (calc) 1.9-3.7 GLUCOSE (test code = 92285167) 96 mg/dL 65-99 PROTEIN, TOTAL (test code = 67271345) 6.9 g/dL 6.1-8.1 ALKALINE PHOSPHATASE (test code = 69 U/L 31-125 38392800) UREA NITROGEN (BUN) (test code = 15 mg/dL 7-25 25696436) CREATININE (test code = 46824955) 0.75 mg/dL 0.50-1.10 T4, [id number] 10:25:[id number] 10:25:001.41LIPID PANEL, STANDARD 2020-02-21 10:25:00 Test Item Value Reference Range Comments TRIGLYCERIDES (test code = 07443771) 103 mg/dL <150 CHOLESTEROL, TOTAL (test code = 44878575) 246 mg/dL <200 CHOL/HDLC RATIO (test code = 06759437) 4.5 (calc) <5.0 LDL-CHOLESTEROL (test code = 04461177) 169 mg/dL (calc) NON HDL CHOLESTEROL (test code = 02770441) 191 mg/dL (calc) <130 HDL CHOLESTEROL (test code = 71937559) 55 mg/dL > OR = 50 T4 (THYROXINE), [id number] 10:25:009.3CBC (H/H, RBC, INDICES, WBC, PLT) 2020-02-21 10:25:00 Test Item Value Reference Range Comments PLATELET COUNT (test code = 52692526) 334 Thousand/uL 140-400 MCHC (test code = 57815442) 33.1 g/dL 32.0-36.0 RDW (test code = 28368291) 12.3 % 11.0-15.0 RED BLOOD CELL COUNT (test code = 57022717) 4.65 Million/uL 3.80 -5.10 MPV (test code = 53918560) 10.4 fL 7.5-12.5 WHITE BLOOD CELL COUNT (test code = 7.5 Thousand/uL 3.8-10.8 87014634) HEMATOCRIT (test code = 40940578) 42.0 % 35.0-45.0 MCH (test code = 92179360) 29.9 pg 27.0-33.0 HEMOGLOBIN (test code = 54084487) 13.9 g/dL 11.7-15.5 MCV (test code = 43570737) 90.3 fL 80.0-100.0 T3, [id number] 10:25:003.0HEMOGLOBIN A1c WITH [id number] 10:25:00 Test Item Value Reference Range Comments eAG (mmol/L) (test code = 52457710) 6.0 (calc) eAG (mg/dL) (test code = 01613063) 108 (calc) HEMOGLOBIN A1c (test code = 4548-4) 5.4 % of total Hgb <5.7 T3, [id number] 10:25:48004Dtc, TP Imaging w/ [id number] 00:01:00 Test Item Value Reference Range Comments LMP: (test code = 489381) 20171105 Source: (test code = 284843) Cervical Number of Slides/Vials: (test code = 1 Vial Submitted 465958) Source (test code = 770946) Cervical HPV, High Risk (test code = 190328) Not Detected Source: (test code = 62507092) Cervical Lipid [id number] 00:01:00 Test Item Value Reference Range Comments HDL Cholesterol (test code = 102956) 41 mg/dL >50 Total Chol/HDL Ratio (test code = 880125) 4.7 Ratio <5.0 VLDL Cholesterol (Calc) (test code = 831580) 30 mg/dL <30 LDL Cholesterol (Calc) (test code = 094963) 123 mg/dL <100 Triglycerides (test code = 557989) 148 mg/dL <150 Cholesterol (test code = 990922) 194 mg/dL <200 CMP with Estimated [id number] 00:01:00 Test Item Value Reference Range Comments Chloride (test code = 698354) 106 mmol/L 98-110 ALT/SGPT (test code = 830555) 16 U/L 6-29 Sodium (test code = 444290) 138 mmol/L 135-146 Bilirubin, Total (test code = 145633) 0.8 mg/dL 0.2-1.2 Glucose (test code = 585618) 128 mg/dL 65-99 Potassium (test code = 411889) 3.7 mmol/L 3.5-5.3 AST/SGOT (test code = 738800) 15 U/L 10-30 CO2 (test code = 501782) 20 mmol/L 20-31 Est GFR, (test code = 321563) >89 mL/min > =60 Calcium (test code = 220489) 9.0 mg/dL 8.6-10.2 BUN (test code = 750986) 6 mg/dL 7-25 Creatinine (test code = 657834) 0.88 mg/dL 0.50-1.10 Alkaline Phosphatase (test code = 390781) 51 U/L 33-115 Albumin (test code = 640232) 4.4 g/dL 3.6-5.1 Total Protein (test code = 662086) 6.8 g/dL 6.1-8.1 Est GFR, NonAfrican Vietnamese (test code = 579328) 81 mL/min >=60 Est GFR, (test code = 83150445) >89 mL/min >=60 Est GFR, (test code = 55896415) >89 mL/min >=60 Est GFR, (test code = 55834318) >89 mL/min >=60 CBC NO Diff (Complete Blood Count)2017-11-08 00:01:00 Test Item Value Reference Range Comments MCV (test code = 646131) 87.0 fL 80.0-100.0 Platelet Count (test code = 991213) 346 K/uL 140-400 WBC (test code = 664958) 7.3 K/uL 3.8-10.8 RDW (test code = 919818) 14.3 % 11.0-15.0 MCHC (test code = 538790) 33.4 g/dL 32.0-36.0 MPV (test code = 459570) 10.4 fL 7.5-12.5 RBC (test code = 460266) 4.68 MIL/uL 3.80-5.10 Hematocrit (test code = 112537) 40.7 % 35.0-45.0 Hemoglobin (test code = 118816) 13.6 g/dL 11.7-15.5 MCH (test code = 886985) 29.1 pg 27.0-33.0 Hemoglobin A1c with [id number] 00:01:00 Test Item Value Reference Range Comments Hemoglobin A1C (test code = 579045) 5.5 % <5.7 eAG (calc) (test code = 462096) 111 mg/dL T3 [id number] 00:01:00 Test Item Value Reference Range Comments T3 (test code = 289321) 148.0 ng/dL 76-181 T4 Free (FT4)2017-11-08 00:01:00 Test Item Value Reference Range Comments Free T4 (test code = 314485) 1.3 ng/dL 0.8-1.8 [id number] 00:01:00 Test Item Value Reference Range Comments TSH (test code = 059404) 1.44 mIU/L C. trachomatis/N.gonorrhoeae [id number] 00:01:00 Test Item Value Reference Range Comments Neisseria gonorrhoeae RNA (test code = 880113) NOT DETECTED Chlamydia trachomatis RNA (test code = 890379) NOT DETECTED Wet Prep by Molecular [id number] 00:01:00 Test Item Value Reference Range Comments Trichomonas vaginalis (test code = 479085) NEG Negat phylicia Flor species (test code = 507500) POS Negative Trichomonas vaginalis (test code = 0463045) NEG Nega tive Gardnerella vaginalis (test code = 530718) NEG Negat phylicia Gardnerella vaginalis (test code = 1517651) NEG Nega tive Trichomonas vaginalis (test code = 04921661) NEG Neg ative Gardnerella vaginalis (test code = 47591603) NEG Neg ative Flor species (test code = 30197298) POS Negative Flor species (test code = 31406479) POS Negative RPR w/ Rflx to Titer and [id number] 00:01:00 Test Item Value Reference Range Comments RPR (test code = 763693) NON REAC NON REAC RPR (test code = 4220250) NON REAC NON REAC RPR (test code = 2058781) NON REAC NON REAC RPR (test code = 6671702) NON REAC NON REAC RPR (test code = 6995523) NON REAC NON REAC HIV 1/2 Ag/Ab, 4th Gen, w/ [id number] 00:01:00 Test Item Value Reference Range Comments HIV Ag/Ab, 4th Generation (test code = 793630) NONREACTIVE N ONREACTIVE HIV Ag/Ab, 4th Generation (test code = 9976066) NONREACTIVE NONREACTIVE HIV Ag/Ab, 4th Generation (test code = 4508192) NONREACTIVE NONREACTIVE HIV Ag/Ab, 4th Generation (test code = 5886736) NONREACTIVE NONREACTIVE Urine [id number] 00:01:00 Test Item Value Reference Range Comments Squamous Epithelial (test code = 054666) 0-5 HPF <=5 Crystals (test code = 927402) NONE SEEN HPF NONE SEEN Casts (test code = 292004) NONE SEEN LPF NONE SEEN Yeast (test code = 68493609) NONE SEEN HPF NONE SEEN Bacteria (test code = 579434) NONE SEEN HPF NONE SEEN Bacteria (test code = 18222058) NONE SEEN HPF NONE SEEN WBC (test code = 629518) 0-5 WBC/HPF <=5 Yeast (test code = 6978574640) NONE SEEN HPF NONE SEEN Casts (test code = 36322870) NONE SEEN LPF NONE SEEN RBC (test code = 614173) NONE SEEN RBC/HPF <=2 Crystals (test code = 80887299) NONE SEEN HPF NONE SEEN Squamous Epithelial (test code = 71143659) 0-5 HPF <=5 WBC (test code = 83674435) 0-5 WBC/HPF <=5 RBC (test code = 39513253) NONE SEEN RBC/HPF <=2 Culture, [id number] 00:01:00 Test Item Value Reference Range Comments FINAL REPORT (test code = FR) NO GROWTH Assessments Condition Name Status Diagnosis Date Treating Clinici an Hyperlipidemia, unspecified Active Other fatigue Active Type 2 diabetes mellitus without Active 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 Encntr screen mammogram for malignant Active neoplasm of breast 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) w/o Active abn findings Unspecified corneal scar and opacity Active Body mass index (BMI) 35.0-35.9, adult Active Other fatigue Active Hyperlipidemia, unspecified Active Hyperglycemia, unspecified Active Unspecified sexually transmitted disease Active Encounters Start End Encounter Admission Attending Care Care Encounter Date/Time Date/Time Type Type Clinicians Facility Department ID 2020-02-21 2020-02-21 Outpatient [facility] [id number] 09:15:00 09:15:00 Aba Joshi [id number] s [id number] and [id number] [facility], 2017-11-12 2017-11-12 Outpatient [facility] [id number] 13:30:00 13:30:00 Aba Joshi [id number] s [id number] 2017-11-08 Outpatient [facility] [id number] 14:00:00 14:00:00 Aba Joshi [id number] s [id number] and [id number] [facility], ISA Social History This patient has no known social history. Vital Signs This patient has no known vital signs.
== END ==
LOC: OD 09:08
PROVIDERS: ATTEND Family Medicine
DX: E11.8 Type 2 diabetes mellitus with unspecified complications (principal)
CPT/HCPCS: 36415; 80053; 80061; 83036; 85025